=== PATIENT | female | born 1945 | race Hispanic/Latino ===

== ENCOUNTER 2017-01-22 08:37 | Emergency (ER) | payer MEDICARE, BC ==
[2017-01-22 09:15] LABS: Bilirubin Negative (Negative); Blood, Urine Negative (Negative); Glucose, Urine (Dipstick) Negative (Negative); Ketone, Urine Negative (Negative); Nitrite Negative (Negative); Protein, Urine (Dipstick) Negative (Neg-Trace)
[2017-01-22 09:18] LABS: Bacteria/HPF None Seen HPF (None Seen); Hyaline Casts/LPF 0-3 HYALINE CAST LPF (0-3 Hyaline); RBC/HPF 0-3 HPF (0-3)
== END 2017-01-22 10:08 | disposition home or self-care (01) ==
LOC: ERS 08:37
DX: N39.0 Urinary tract infection, site not specified (principal); E11.9 Type 2 diabetes mellitus without complications; I10 Essential (primary) hypertension; E78.5 Hyperlipidemia, unspecified; Z79.84 Long term (current) use of oral hypoglycemic drugs; Z79.899 Other long term (current) drug therapy
CPT/HCPCS: 81003; 81015; 87086; 99283

== ENCOUNTER 2018-01-24 12:16 | Outpatient (CLI) | payer MEDICARE, BC | END 2018-01-24 12:17 | disposition home or self-care (01) | LOC: BICMAMMO 12:16 | PROVIDERS: ATTEND Family Medicine | DX: Z12.31 Encounter for screening mammogram for malignant neoplasm of breast (principal); R92.1 Mammographic calcification found on diagnostic imaging of breast | CPT/HCPCS: 77063; 77067 ==

== ENCOUNTER 2019-01-26 08:54 | Outpatient (CLI) | payer MEDICARE, BC ==
--- NOTE | 2019-01-26 11:10 | MMO ---
Bilateral MAMMO Bilat Screen [facility]. CLINICAL HISTORY: Patient is 73 years old and is seen for screening. The patient has no family history of breast cancer. The patient has no personal history of cancer. VIEWS: The views performed were: bilateral craniocaudal with tomosynthesis and bilateral mediolateral oblique with tomosynthesis. FILMS COMPARED: The present examination has been compared to a prior imaging study performed at [facility] on 01/24/2018. This study has been interpreted with the assistance of computer-aided detection. MAMMOGRAM FINDINGS: The breasts are heterogeneously dense, which could obscure a lesion on mammography. There are stable benign appearing calcifications seen in both breasts. There are no suspicious masses, suspicious calcifications, or new areas of architectural distortion. IMPRESSION: THERE IS NO MAMMOGRAPHIC EVIDENCE OF MALIGNANCY. A ROUTINE FOLLOW-UP MAMMOGRAM IN 1 YEAR IS RECOMMENDED. THE RESULTS OF THIS EXAM WERE SENT TO THE PATIENT. ACR BI-RADS Category 2 - Benign finding MAMMOGRAPHY NOTE: 1. A negative mammogram report should not delay a biopsy if a dominant of clinically suspicious mass is present. 2. Approximately 10% to 15% of breast cancers are not detected by mammography. 3. Adenosis and dense breasts may obscure an underlying neoplasm. Reported by: BERONICA JUDGE MD Electonically Signed: [id number]
== END 2019-01-26 08:55 | disposition home or self-care (01) ==
LOC: BICMAMMO 08:54
PROVIDERS: ATTEND Family Medicine
DX: Z12.31 Encounter for screening mammogram for malignant neoplasm of breast (principal)
CPT/HCPCS: 77063; 77067

== ENCOUNTER 2019-06-25 12:27 | Outpatient (CLI) | payer MEDICARE, BC ==
--- NOTE | 2019-06-25 13:28 | CT ---
CT thoracic spine noncontrast: DATE: 06/25/2019 HISTORY: 73-year-old female with mid back pain "M 62.830, spasm of thoracic back muscle" Rule out mass FINDINGS: T12 ribs are bilaterally hypoplastic. Vertebral body heights are maintained. Large bridging endplate marginal osteophytes protruding into the right anterior aspect of the prevertebral space at all levels from T6-7 through T11/12. No destructive osseous lesion identified involving thoracic vertebra e or heads of ribs. No soft tissue tumor mass identified in the perivertebral spaces. No bony retropulsion. No high-grade central spinal canal stenosis or high-grade neural foraminal stenosis at any level. Calcified ligamentum flavum at T10 and T9. Mild compensatory left lateral curvature of lower thoracic spine in response to dextroscoliosis of lumbar spine. Map Maker view demonstrates spondylo listhesis at L4-5. Approximately 20% of the stomach herniates near midline into the posterior inferior mediastinum. No pleural effusion. Moderate disc space narrowing at T10-11. IMPRESSION: 1. Moderate-sized sliding hiatal hernia. 2. No compression fracture or destructive osseous lesion. 3. Lumbar dextroscoliosis and mild compensatory thoracic lateral curvature. 4. Diffuse idiopathic skeletal hyperostosis (DISH). 5. Mild degenerative disc disease at lower levels.
--- NOTE | 2019-06-25 13:49 | ULT ---
Ultrasound right arm: DATE: 06/25/2019 HISTORY: 73-year-old female with right arm mass. TECHNIQUE: Focused ultrasound of palpable lump in the right arm. FINDINGS: 4 images are submitted, and labeled "right biceps palpable" no architectural distortion, solid or cys tic mass, or acoustic shadowing, is demonstrated. IMPRESSION: 1. Negative ultrasound. 2. For soft tissue mass of the arm, MRI with and without contrast would be more sensitive for detecti on than ultrasound
== END 2019-06-25 12:28 | disposition home or self-care (01) ==
LOC: BICCT 12:27
PROVIDERS: ATTEND Family Medicine
DX: R22.31 Localized swelling, mass and lump, right upper limb (principal); M62.830 Muscle spasm of back; K44.9 Diaphragmatic hernia without obstruction or gangrene; M48.14 Ankylosing hyperostosis [Forestier], thoracic region; M51.34 Other intervertebral disc degeneration, thoracic region; M41.9 Scoliosis, unspecified
CPT/HCPCS: 72128; 76999

== ENCOUNTER 2020-02-25 10:45 | Outpatient (CLI) | payer MEDICARE, BC ==
--- NOTE | 2020-02-25 12:49 | MMO ---
Bilateral MAMMO Bilat Screen [facility]. CLINICAL HISTORY: Patient is 74 years old and is seen for screening. The patient has no family history of breast cancer. The patient has no personal history of cancer. VIEWS: The views performed were: bilateral craniocaudal with tomosynthesis and bilateral mediolateral oblique with tomosynthesis. FILMS COMPARED: The present examination has been compared to prior imaging studies performed at [facility] on 07/18/2015, 11/13/2016, 01/24/2018 and 01/26/2019. This study has been interpreted with the assistance of computer-aided detection. MAMMOGRAM FINDINGS: The breasts are heterogeneously dense, which could obscure a lesion on mammography. There are no suspicious masses, suspicious calcifications, or new areas of architectural distortion. IMPRESSION: THERE IS NO MAMMOGRAPHIC EVIDENCE OF MALIGNANCY. A ROUTINE FOLLOW-UP MAMMOGRAM IN 1 YEAR IS RECOMMENDED. THE RESULTS OF THIS EXAM WERE SENT TO THE PATIENT. ACR BI-RADS Category 1 - Negative MAMMOGRAPHY NOTE: 1. A negative mammogram report should not delay a biopsy if a dominant of clinically suspicious mass is present. 2. Approximately 10% to 15% of breast cancers are not detected by mammography. 3. Adenosis and dense breasts may obscure an underlying neoplasm. Reported by: SHAWNA ROSA MD Electonically Signed: [id number]
== END 2020-02-25 10:46 | disposition home or self-care (01) ==
LOC: BICMAMMO 10:45
PROVIDERS: ATTEND Family Medicine
DX: Z12.31 Encounter for screening mammogram for malignant neoplasm of breast (principal)
CPT/HCPCS: 77063; 77067

== ENCOUNTER 2020-07-13 09:40 | Outpatient (CLI) | payer MEDICARE, BC | END 2020-07-13 09:41 | disposition home or self-care (01) | LOC: BICMAMMO 09:40 | PROVIDERS: ATTEND Family Medicine | DX: Z13.820 Encounter for screening for osteoporosis (principal); E28.39 Other primary ovarian failure; Z78.0 Asymptomatic menopausal state | CPT/HCPCS: 77080 ==

== ENCOUNTER 2021-06-29 10:47 | Outpatient (CLI) | payer MEDICARE, BC | END 2021-06-29 10:48 | disposition home or self-care (01) | LOC: BICMAMMO 10:47 | PROVIDERS: ATTEND Family Medicine | DX: Z12.31 Encounter for screening mammogram for malignant neoplasm of breast (principal) | CPT/HCPCS: 77063; 77067 ==

== ENCOUNTER 2022-02-27 06:00 | Inpatient (IN) | payer MEDICARE, BC ==
[2022-02-26 13:37] VITALS: BMI 27.0
[2022-02-27] MEDS ORDERED: Vancomycin (BATCH) 1.5 GRAM/300 ML BAG ONE (07:29)
[2022-02-27] MEDS ORDERED: Tranexamic Acid 1,000 MG/10 ML VIAL ONE (07:29)
[2022-02-27] MEDS ORDERED: Sodium Chloride 0.9% 100 ML ONE ×3 (07:29→15:28)
[2022-02-27] MEDS ORDERED: Midazolam HCl 2 mg/2 ml Vial ONE (07:53)
[2022-02-27] MEDS ORDERED: Bupivacaine PF 0.5% 30 ML VIAL ONE ×2 (07:53→14:03)
[2022-02-27] MEDS ORDERED: Fentanyl 100 MCG/2 ML VIAL ONE (07:53)
[2022-02-27] MEDS ORDERED: EPINEPHrine 1 MG/ML AMP ONE (07:53)
[2022-02-27 08:24] LABS: Prothrombin Time 13.2 sec (12.0-14.7)
[2022-02-27] MEDS ORDERED: Fentanyl 100 MCG/2 ML VIAL IV PRN (08:35)
[2022-02-27 08:41] LABS: SARS-CoV-2 NAA Rapid Test Not Detected (NotDetected)
[2022-02-27] MEDS ORDERED: Ropivacaine 0.2% 550 ML 550 ML NERVE BLCK SCH (08:45)
[2022-02-27] MEDS ORDERED: Ondansetron PF 4 MG/2 ML Vial IVP PRN ×2 (08:45→08:54)
[2022-02-27] MEDS ORDERED: HYDROcodone/Acetaminophen 10/325 mg Tablet PO PRN (08:45)
[2022-02-27] MEDS ORDERED: traMADol HCl 50 MG TAB PO PRN ×2 (08:45)
[2022-02-27] MEDS ORDERED: Promethazine HCl 25 MG/ML VIAL IM PRN ×3 (08:45→09:32)
[2022-02-27] MEDS ORDERED: Zolpidem Tartrate 5 MG TAB PO PRN ×2 (08:45→08:54)
[2022-02-27] MEDS ORDERED: diphenhydrAMINE 25 MG CAP PO PRN (08:54)
[2022-02-27] MEDS ORDERED: Acetaminophen 325 MG TAB PO PRN (08:54)
[2022-02-27] MEDS ORDERED: Fentanyl 250 MCG/5 ML VIAL ONE (08:55)
[2022-02-27] MEDS ORDERED: FAMOTIDINE 10 MG PO PRN (08:55)
[2022-02-27] MEDS ORDERED: Aspirin Chewable 81 MG TAB PO SCH (09:00)
[2022-02-27] MEDS ORDERED: CEFAZOLIN 2 GM VIAL ONE ×2 (09:06→15:27)
[2022-02-27] MEDS ORDERED: Ondansetron PF 4 MG/2 ML Vial ONE (09:15)
[2022-02-27] MEDS ORDERED: PROPOFOL 200 MG/20 ML VIAL ONE (09:15)
[2022-02-27] MEDS ORDERED: ePHEDrine 50 MG/ML VIAL ONE (09:15)
[2022-02-27] MEDS ORDERED: Dexamethasone 20 MG/5 ML VIAL ONE (09:15)
[2022-02-27] MEDS ORDERED: Ondansetron HCl/PF 4 MG/2 ML Vial IVP PRN (09:32)
[2022-02-27] MEDS ORDERED: Famotidine 20 MG TAB PO PRN (10:28)
[2022-02-27] MEDS ORDERED: HYDROcodone/Acetaminophen 10/325 mg Tablet ONE (14:11)
[2022-02-27] MEDS: CEFAZOLIN 2 GM in Sodium Chloride 0.9% 100 ML IVPB SCH ×2 (16:05→22:32)
[2022-02-27] MEDS ORDERED: glyBURIDE 5 MG TAB PO SCH (17:00)
[2022-02-27] MEDS ORDERED: metFORMIN 500 MG TAB PO SCH (17:00)
[2022-02-27] MEDS: Ketorolac Tromethamine 30 MG/ML VIAL IVP SCH ×2 (17:32)
[2022-02-27] MEDS: Lisinopril/Hydrochlorothiazide 20/25 mg Tablet PO SCH (18:38)
[2022-02-27] MEDS: Aspirin 81 mg Enteric Coated Tablet PO SCH ×2 (18:38→20:14)
[2022-02-27] MEDS: Pioglitazone HCl 15 MG TAB PO SCH (18:39)
[2022-02-27] MEDS: Sodium Chloride 0.9% 1,000 ML IV SCH ×2 (18:39→20:22)
[2022-02-27] MEDS: Atorvastatin Calcium 20 MG TAB PO SCH (20:13)
[2022-02-27] MEDS: traZODone HCl 50 MG TAB PO SCH (20:16)
[2022-02-27] MEDS: HYDROcodone/Acetaminophen 10/325 mg Tablet PO PRN ×2 (20:18→22:31)
[2022-02-27] MEDS ORDERED: Simvastatin 20 MG TAB PO SCH (21:00)
[2022-02-27] MEDS ORDERED: HumaLOG 300 UNITS/3 ML VIAL SC PRN (22:35)
[2022-02-27] MEDS ORDERED: Dextrose 50% Abboject 50 ML SYRINGE SLOW IVP PRN (22:35)
[2022-02-27] MEDS ORDERED: Dextrose 5% in Water 1,000 ML IV PRN (22:35)
[2022-02-28] MEDS: Ketorolac Tromethamine 30 MG/ML VIAL IVP SCH ×5 (00:42→23:02)
[2022-02-28] MEDS: Sodium Chloride 0.9% 1,000 ML IV SCH ×2 (05:02→14:08)
[2022-02-28] MEDS: Pantoprazole 40 MG VIAL IVP SCH (06:04)
[2022-02-28 07:22] LABS: Hemoglobin 8.4 g/dL (12.0-16.0); Mean Corpuscular HGB CONC 32.2 g/dL (32.0-36.0); Mean Corpuscular Volume 93.2 fl (78.0-98.0); Mean Platelet Volume 8.8 fL (7.4-10.4); Platelet Count 180 10x3/uL (130-400); RBC Distribution Width 12.6 % (11.5-14.5); Red Blood Cell (RBC) Count 2.79 mill/uL (4.20-5.40); White Blood Cell (WBC) Count 9.9 10x3/uL (4.8-10.8)
[2022-02-28 07:43] LABS: Anion Gap 15 mmol/L (10-20); BUN (Urea Nitrogen) 30 mg/dL (9.8-20.1); Calc. Creatinine Clearance 44 mL/min (70-130); Calcium 9.1 mg/dL (7.8-10.44); Carbon Dioxide 23 mmol/L (23-31); Chloride 103 mmol/L (98-107); Estimated GFR 38; Glucose 164 mg/dL (83-110); Potassium 4.5 mmol/L (3.5-5.1); Sodium 136 mmol/L (136-145)
[2022-02-28] MEDS: Pioglitazone HCl 15 MG TAB PO SCH (08:10)
[2022-02-28] MEDS: Aspirin 81 mg Enteric Coated Tablet PO SCH ×2 (08:10→20:08)
[2022-02-28] MEDS: Lisinopril/Hydrochlorothiazide 20/25 mg Tablet PO SCH (08:10)
[2022-02-28] MEDS: Ferrous Gluconate 324 MG TAB PO SCH ×2 (08:10→17:07)
[2022-02-28] MEDS: Multivitamin W/ Minerals 1 TAB PO SCH (08:10)
[2022-02-28] MEDS: Senokot S 8.6-50 MG TAB PO SCH ×2 (08:11→20:08)
[2022-02-28] MEDS: HYDROcodone/Acetaminophen 10/325 mg Tablet PO PRN ×4 (08:18→23:01)
[2022-02-28] MEDS: HumaLOG 300 UNITS/3 ML VIAL SC PRN ×2 (11:32→17:08)
[2022-02-28] MEDS: Atorvastatin Calcium 20 MG TAB PO SCH (20:07)
[2022-02-28] MEDS: traZODone HCl 50 MG TAB PO SCH (20:08)
[2022-03-01] MEDS: Sodium Chloride 0.9% 1,000 ML IV SCH ×2 (01:06→10:12)
[2022-03-01] MEDS: Ketorolac Tromethamine 30 MG/ML VIAL IVP SCH (05:48)
[2022-03-01] MEDS: Pantoprazole 40 MG VIAL IVP SCH (05:49)
[2022-03-01 06:55] LABS: Hemoglobin 7.8 g/dL (12.0-16.0); Mean Corpuscular HGB CONC 32.4 g/dL (32.0-36.0); Mean Corpuscular Volume 92.4 fl (78.0-98.0); Mean Platelet Volume 9.3 fL (7.4-10.4); Platelet Count 151 10x3/uL (130-400); RBC Distribution Width 12.6 % (11.5-14.5); White Blood Cell (WBC) Count 7.2 10x3/uL (4.8-10.8)
[2022-03-01] MEDS: Multivitamin W/ Minerals 1 TAB PO SCH (08:16)
[2022-03-01] MEDS: Ferrous Gluconate 324 MG TAB PO SCH (08:16)
[2022-03-01] MEDS: Pioglitazone HCl 15 MG TAB PO SCH (08:17)
[2022-03-01] MEDS: Senokot S 8.6-50 MG TAB PO SCH (08:17)
[2022-03-01] MEDS: HYDROcodone/Acetaminophen 10/325 mg Tablet PO PRN ×2 (08:17→12:37)
[2022-03-01] MEDS: Lisinopril/Hydrochlorothiazide 20/25 mg Tablet PO SCH (08:17)
[2022-03-01] MEDS: Aspirin 81 mg Enteric Coated Tablet PO SCH (08:18)
[2022-03-01] MEDS: HumaLOG 300 UNITS/3 ML VIAL SC PRN (11:43)
[2022-03-01 13:44] VITALS: BP 92/59; TEMP 98.1
== END 2022-03-01 13:43 | DRG 470 ==
LOC: SDC 06:00 → SURG A 16:04 → OBSVTOIN 03-01 06:48
PROVIDERS: ADMIT Orthopaedic Surgery; ATTEND Orthopaedic Surgery
PROC: 0SRC0J9 Replacement of Right Knee Joint with Synthetic Substitute, Cemented, Open Approach (ICD-10-PCS; principal; 2022-02-27)
DX: M17.11 Unilateral primary osteoarthritis, right knee (principal); Z20.822 Contact with and (suspected) exposure to COVID-19; I10 Essential (primary) hypertension; E78.5 Hyperlipidemia, unspecified; E11.9 Type 2 diabetes mellitus without complications; M21.061 Valgus deformity, not elsewhere classified, right knee; Z79.82 Long term (current) use of aspirin; Z79.84 Long term (current) use of oral hypoglycemic drugs; Z79.899 Other long term (current) drug therapy
CPT/HCPCS: 36415; 36416; 80048; 85027; 85610; 87081; 96374; 96375; 96376; A4306; C1713; C1776; C9113; G0378; J0171; J1100; J1815; J1885; J2250; J2405; J2704; J2795; J3010; J3370; J3490; S0020; U0002

== ENCOUNTER 2022-10-10 10:59 | Outpatient (CLI) | payer MEDICARE, BC | END 2022-10-10 11:00 | disposition home or self-care (01) | LOC: RAD 10:59 | PROVIDERS: ATTEND Podiatrist | DX: R22.42 Localized swelling, mass and lump, left lower limb (principal); M77.32 Calcaneal spur, left foot ==